=== PATIENT | male | born 1965 | race African-American/Black ===

== ENCOUNTER 2018-08-29 14:55 | Inpatient (IN) | payer OTHER ==
[2018-08-29 17:32] VITALS: BMI 22.5
--- NOTE | 2018-08-29 19:35 | HP ---
CIWA Score Nausea/Vomitin-Mild Nausea/No Vomiting Muscle Tremors: 2 Anxiety: 3 Agitation: 0-Normal Activity Paroxysmal Sweats: 2 Orientation: 1-Uncertain about Date Tacttile Disturbances: 2-Mild Itch/Numbness/Burn Auditory Disturbances: 0-None Visual Disturbances: 0-None Headache: 0-None Present CIWA-Ar Total Score: 11 - Admission Criteria OASAS Guidelines: Admission for Medically Managed Detox: Requires at least one of the followin. CIWA greater than 12 2. Seizures within the past 24 hours 3. Delirium tremens within the past 24 hours 4. Hallucinations within the past 24 hours 5. Acute intervention needed for co occurring medical disorder 6. Acute intervention needed for co occurring psychiatric disorder 7. Severe withdrawal that cannot be handled at a lower level of care (continued vomiting, continued diarrhea, abnormal vital signs) requiring intravenous medication and/or fluids 8. Patient presents the following: Acute intervention needed for co-occurring med or psych disorder Admission Criteria Met: Admission criteria met Admission [facility] - HPI Chief Complaint: " alcohol detox" Allergies/Adverse Reactions: Allergies Allergy/AdvReac Type Severity Reaction Status Date / Time guevara Allergy Verified 08/29/18 19:03 shellfish derived Allergy Verified 08/29/18 19:03 History of Present Illness: 52 yo male with hx of nicotine, marijuana, and alcohol dependence is here seeking detox d/t withdrawal symptoms. Last detox two months ago at [facility]. Peripheral neuropathy, hx gastric bypass, asthma, HTN, AIDS, depression, bipolar and anxiety. Denies suicidal / homicidal ideation or hx of suicide attempt. Denies hx of seizures or blackouts. Longest period of sobriety of sobriety three years Exam Limitations: No Limitations - Ebola screening Have you traveled outside of the country in the last 21 days: No Have you had contact with anyone from an Ebola affected area: No Have you been sick,other than usual withdrawal symptoms: No - Review of Systems Constitutional: Chills, Changes in sleep EENT: reports: Dental Problems (poor dentition) Respiratory: reports: No Symptoms reported Cardiac: reports: No Symptoms Reported GI: reports: Diarrhea, Poor Fluid Intake, Abdominal cramping : reports: No Symptoms Reported Musculoskeletal: reports: Joint Pain Integumentary: reports: Dryness, Pruritus Neuro: reports: See HPI Endocrine: reports: Increased Thirst Hematology: reports: See HPI Psychiatric: reports: Orientated x3, Depressed Other Systems: Reviewed and Negative Patient History - Patient Medical History Hx Anemia: No Hx Asthma: Yes Hx Chronic Obstructive Pulmonary Disease (COPD): No Hx Cancer: No Hx Cardiac Disorders: No Hx Congestive Heart Failure: No Hx Hypertension: Yes Hx Hypercholesterolemia: No Hx Pacemaker: No HX Cerebrovascular Accident: No Hx Seizures: No Hx Dementia: No Hx Diabetes: No Hx Gastrointestinal Disorders: No Hx Liver Disease: Yes (hep C treated ) Hx Genitourinary Disorders: No Hx Sexually Transmitted Disorders: No Hx Renal Disease (ESRD): No Hx Thyroid Disease: No Hx Human Immunodeficiency Virus (HIV): Yes (reports currely AIDS status ) Hx Hepatitis C: Yes (treated ) Hx Depression: Yes Hx Suicide Attempt: No Hx Bipolar Disorder: Yes Hx Schizophrenia: No - Patient Surgical History Past Surgical History: Yes Hx Lung Surgery: Yes (R PARTIAL REMOVAL 2016) Hx Abdominal Surgery: Yes (GASTRIC BYPASS 2012) Hx Orthopedic Surgery: Yes (R FOOT SX PLATE IN PLACE 2015) - PPD History Previous Implant?: No Documented Results: Negative w/o proof PPD to be Administered?: Yes - Smoking Cessation Smoking history: Current every day smoker Have you smoked in the past 12 months: Yes Aproximately how many cigarettes per day: 20 Hx Chewing Tobacco Use: No Initiated information on smoking cessation: Yes 'Breaking Loose' booklet given: 08/29/18 - Substance & Tx. History Hx Alcohol Use: Yes Hx Substance Use: Yes Substance Use Type: Alcohol Hx Substance Use Treatment: Yes (Last detox two months ago at [facility]. ) - Substances Abused Alcohol Route: Oral Frequency: Daily Amount used: 2 x 6 PACK BEER Age of first use: 9 Date of Last Use: 08/29/18 Marijuana/Hashish Route: Smoking Frequency: 1-3 times last 30 days Amount used: $50 Age of first use: 9 Date of Last Use: 08/29/18 Family Disease History - Family Disease History Family Disease History: Diabetes: Grandparent, Father, Mother, Other: Brother ( alcoholisn) Admission Physical Exam [facility] - Vital Signs Vital Signs: Vital Signs - 24 hr 08/29/18 17:28 Temperature 96.7 F L Pulse Rate 90 Respiratory 18 Rate Blood Pressure 151/97 - Physical General Appearance: Yes: Appropriately Dressed, Mild Distress, Thin, Sweating, Anxious HEENTM: Yes: EOMI, Hearing grossly Normal, Normal ENT Inspection, Normocephalic , Normal Voice, CARMELA, Pharynx Normal, Tm's normal, Other (poor dentition) Respiratory: Yes: Chest Non-Tender, Lungs Clear, Normal Breath Sounds, No Respiratory Distress, No Accessory Muscle Use Neck: Yes: Within Normal Limits Breast: Yes: Breast Exam Deferred Cardiology: Yes: Regular Rhythm, Regular Rate Abdominal: Yes: Normal Bowel Sounds, Non Tender, Flat, Soft Genitourinary: Yes: Within Normal Limits Back: Yes: Normal Inspection Musculoskeletal: Yes: full range of Motion, Gait Steady, Pelvis Stable Extremities: Yes: Normal Capillary Refill, Normal Inspection, Normal Range of Motion, Non-Tender Neurological: Yes: electrical prospecting observer II-XII NML intact, Fully Oriented, Alert, Motor Strength 5/5, Depressed Affect Integumentary: Yes: Normal Color, Warm, Diaphoresis Lymphatic: Yes: Within Normal Limits - Diagnostic (1) Alcohol dependence with withdrawal Current Visit: Yes Status: Acute Qualifiers: Complication of substance-induced condition: uncomplicated Qualified Code(s ): F10.230 - Alcohol dependence with withdrawal, uncomplicated (2) AIDS Current Visit: Yes Status: Chronic (3) Essential (primary) hypertension Current Visit: Yes Status: Chronic (4) Asthma Current Visit: Yes Status: Chronic Qualifiers: Asthma severity: moderate Asthma persistence: persistent Asthma complication type: uncomplicated Qualified Code(s): J45.40 - Moderate persistent asthma, uncomplicated (5) Peripheral neuropathy Current Visit: Yes Status: Chronic Qualifiers: Peripheral neuropathy type: polyneuropathy, unspecified Qualified Code(s): G62.9 - Polyneuropathy, unspecified (6) Hx of gastric bypass Current Visit: Yes Status: Chronic Cleared for Admission S - Detox or Rehab [facility] Level of Care: Medically Managed Detox Regimen/Protocol: Librium [facility] Breath Alcohol Content Breath Alcohol Content: 0 Urine Drug Screen - Results Drug Screen Negative: No Urine Drug Screen Results: THC-Marijuana, OXY-Oxycodone Inpatient Rehab Admission - Rehab Decision to Admit Inpatient rehab admission?: No
[2018-08-29] MEDS ORDERED: OLOPATADINE HCL OU PRN (19:51)
[2018-08-29] MEDS ORDERED: HYDROCORTISONE 2.5% TP PRN (19:51)
[2018-08-29] MEDS ORDERED: ACETAMINOPHEN 325 MG TABLET (FP) PO PRN ×2 (20:04)
[2018-08-29] MEDS ORDERED: chlordiazePOXIDE HCL 10 MG CAPSULE PO PRN (20:04)
[2018-08-29] MEDS ORDERED: ONDANSETRON *ODT* 4 MG TABLET SL PRN (20:04)
[2018-08-29] MEDS ORDERED: MENTHOL/PHENOL 1 EACH UD MM PRN (20:04)
[2018-08-29] MEDS ORDERED: BISMUTH SUBSALICYLATE 524 MG/30 ML UD PO PRN (20:04)
[2018-08-29] MEDS ORDERED: METHOCARBAMOL 500 MG TABLET PO PRN (20:04)
[2018-08-29] MEDS ORDERED: IBUPROFEN 400 MG TABLET (FP) PO PRN (20:04)
[2018-08-29] MEDS ORDERED: hydrOXYzine PAMOATE 25 MG CAPSULE (FP) PO PRN (20:04)
[2018-08-29] MEDS ORDERED: MAGNESIUM CITRATE 300 ML BOTTLE PO PRN (20:04)
[2018-08-29] MEDS ORDERED: MAGNESIUM HYDROX 2400MG/30ML ORAL SUSPENSION 30 ML CUP PO PRN (20:04)
[2018-08-29] MEDS ORDERED: MAG HYDROX/AL HYDROX/SIMETH 30 ML UNIT-DOSE CUP PO PRN (20:04)
[2018-08-29] MEDS: GABAPENTIN 100 MG CAPSULE (FP) PO SCH (21:06)
[2018-08-29] MEDS: chlordiazePOXIDE HCL 25 MG CAPSULE PO SCH (21:07)
[2018-08-29] MEDS: THIAMINE HCL 100 MG TABLET (FP) PO SCH (21:07)
[2018-08-29] MEDS: PATIENT'S OWN MEDICATION (NON-FORMULARY) (Trazodone Hcl [Trazodone Hcl] 100 MG) PO SCH (22:05)
[2018-08-29 23:47] LABS: URINE APPEARANCE CLOUDY; URINE COLOR AMBER; URINE GLUCOSE (UA) NEGATIVE (NEGATIVE); URINE KETONE NEGATIVE (NEGATIVE); URINE LEUK ESTERASE NEGATIVE (NEGATIVE); URINE NITRITE NEGATIVE (NEGATIVE); URINE PROTEIN 2+ (NEGATIVE); URINE UROBILINOGEN 4.0 E.U/dl mg/dL (0.2-1.0)
[2018-08-30 00:15] LABS: EPI CELLS RARE /HPF (FEW); URINE HYALINE CAST 34 /lpf; URINE MUCUS FEW
[2018-08-30] MEDS: GABAPENTIN 100 MG CAPSULE (FP) PO SCH ×3 (05:30→22:12)
[2018-08-30] MEDS: chlordiazePOXIDE HCL 25 MG CAPSULE PO SCH ×2 (05:30→12:14)
[2018-08-30] MEDS ORDERED: EMTRICITABINE/TENOFOV ALAFENAM (DESCOVY) TABLET PO SCH (10:00)
[2018-08-30 10:23] LABS: HEMATOCRIT 32.7 % (35.4-49); HEMOGLOBIN 10.8 GM/dL (11.7-16.9); MCH 28.8 pg (25.7-33.7); MCHC 33.1 g/dl (32.0-35.9); MEAN PLT VOLUME 7.1 fl (7.5-11.1); PLATELET COUNT 182 K/MM3 (134-434); RBC 3.76 M/mm3 (4.00-5.60); RDW 19.5 % (11.9-15.9); WHITE BLOOD COUNT 3.1 K/mm3 (4.0-10.0)
[2018-08-30] MEDS: PRENATAL VITAMINS W/ FOLIC ACID TABLET (FP) PO SCH (10:41)
[2018-08-30] MEDS: LOSARTAN POTASSIUM 50 MG TABLET (FP) PO SCH (10:44)
[2018-08-30] MEDS: NICOTINE 14 MG/24 HOURS TOPICAL PATCH TD SCH (10:45)
[2018-08-30] MEDS: NICOTINE POLACRILEX 2 MG GUM BUC PRN (10:47)
[2018-08-30 11:02] LABS: ALBUMIN 3.2 g/dl (3.4-5.0); ALK PHOS 84 U/L (45-117); ANION GAP 8 MMOL/L (8-16); BILIRUBIN,TOTAL 0.7 mg/dL (0.2-1); BLOOD UREA NITROGEN 13 mg/dL (7-18); CALCIUM 8.1 mg/dL (8.5-10.1); CHLORIDE 104 mmol/L (98-107); CO2 27 mmol/L (21-32); CREATININE 1.2 mg/dL (0.55-1.3); GLUCOSE,RANDOM 94 mg/dL (74-106); POTASSIUM 3.1 mmol/L (3.5-5.1); SGOT/AST 31 U/L (15-37); SGPT/ALT 20 U/L (13-61); SODIUM 139 mmol/L (136-145)
[2018-08-30] MEDS: HYDROCHLOROTHIAZIDE 25 MG TABLET (FP) PO SCH (12:08)
[2018-08-30] MEDS: EMTRICITABINE PO SCH (12:08)
[2018-08-30] MEDS: TENOFOVIR ALAFENAMIDE PO SCH (12:08)
[2018-08-30] MEDS: VALACYCLOVIR HCL 500 MG PO SCH (12:10)
[2018-08-30] MEDS: PATIENT'S OWN MEDICATION (NON-FORMULARY) (Darunavir/Cobicistat [Prezcobix 800 Mg-150 Mg Ta PO SCH (12:10)
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
[2018-08-30] MEDS ORDERED: POTASSIUM CHLORIDE TABS 20 MEQ TABLET.ER (FP) PO ONE (17:53)
--- NOTE | 2018-08-30 17:55 | PN ---
S CIWA - CIWA Score Nausea/Vomitin Muscle Tremors: 3 Anxiety: 3 Agitation: 0-Normal Activity Paroxysmal Sweats: 3 Orientation: 0-Oriented Tacttile Disturbances: 2-Mild Itch/Numbness/Burn Auditory Disturbances: 0-None Visual Disturbances: 0-None Headache: 0-None Present CIWA-Ar Total Score: 14 B[facility] Progress Note (SOAP) Subjective: Sweating, Tremors, Nausea, Stomach Cramping, Body Aches. Objective: PATIENT A & O X 3, OBSERVED AMBULATING ON UNIT. IN NO ACUTE DISTRESS. 08/30/18 17:50 Vital Signs Temperature 98.6 F 08/30/18 14:05 Pulse Rate 70 08/30/18 14:05 Respiratory Rate 20 08/30/18 14:05 Blood Pressure 119/73 08/30/18 14:05 O2 Sat by Pulse Oximetry (%) Laboratory Tests 08/29/18 08/30/18 08/30/18 23:17 07:00 07:00 WBC 3.1 L RBC 3.76 L Hgb 10.8 L Hct 32.7 L MCV 87.0 MCH 28.8 MCHC 33.1 RDW 19.5 H Plt Count 182 MPV 7.1 L Sodium 139 Potassium 3.1 L Chloride 104 Carbon Dioxide 27 Anion Gap 8 BUN 13 Creatinine 1.2 Creat Clearance w eGFR > 60 Random Glucose 94 Calcium 8.1 L Total Bilirubin 0.7 AST 31 ALT 20 Alkaline Phosphatase 84 Total Protein 7.0 Albumin 3.2 L Urine Color [place] Urine Appearance Cloudy Urine pH 5.0 Ur Specific [place] 1.027 Urine Protein 2+ H Urine Glucose (UA) Negative Urine Ketones Negative Urine Blood Negative Urine Nitrite Negative Urine Bilirubin 2.0 Urine Urobilinogen 4.0 e.u/dl Ur Leukocyte Esterase Negative Urine WBC (Auto) 9 Urine RBC (Auto) 30 Ur Epithelial Cells Rare Hyaline Casts 34 Urine Mucus Few RPR Titer 08/30/18 07:00 WBC RBC Hgb Hct MCV MCH MCHC RDW Plt Count MPV Sodium Potassium Chloride Carbon Dioxide Anion Gap BUN Creatinine Creat Clearance w eGFR Random Glucose Calcium Total Bilirubin AST ALT Alkaline Phosphatase Total Protein Albumin Urine Color Urine Appearance Urine pH Ur Specific [place] Urine Protein Urine Glucose (UA) Urine Ketones Urine Blood Urine Nitrite Urine Bilirubin Urine Urobilinogen Ur Leukocyte Esterase Urine WBC (Auto) Urine RBC (Auto) Ur Epithelial Cells Hyaline Casts Urine Mucus RPR Titer Nonreactive LABS NOTED. Assessment: 08/30/18 17:55 WITHDRAWAL SYMPTOMS. HYPOCALCEMIA. HYPOKALEMIA. LEUKOPENIA. ANEMIA. 08/30/18 17:56 Plan: CONTINUE DETOX. INCREASE DAILY PO FLUID INTAKE. K-DUR, 40 MEQ PO X 1 NOW, THEN 20 MEQ PO BID STARTING TOMORROW AM. OSCAL PO FOR HYPOCALCEMIA.
[2018-08-30] MEDS: CALCIUM 500MG/VIT-D 200 UNITS COMBO TABLET (FP) PO SCH (19:26)
[2018-08-30] MEDS: chlordiazePOXIDE 5 MG CAPSULE PO SCH (22:11)
[2018-08-30] MEDS: DIVALPROEX SODIUM 250 MG TABLET E.C. PO SCH (22:11)
[2018-08-30] MEDS: THIAMINE HCL 100 MG TABLET (FP) PO SCH (22:13)
[2018-08-30] MEDS: PATIENT'S OWN MEDICATION (NON-FORMULARY) (Trazodone Hcl [Trazodone Hcl] 100 MG) PO SCH (22:14)
[2018-08-30] MEDS: MELATONIN 5 MG TABLETS PO PRN (22:15)
[2018-08-31] MEDS: GABAPENTIN 100 MG CAPSULE (FP) PO SCH ×3 (05:45→22:11)
[2018-08-31] MEDS: chlordiazePOXIDE 5 MG CAPSULE PO SCH ×2 (05:45→13:25)
[2018-08-31] MEDS: PATIENT'S OWN MEDICATION (NON-FORMULARY) (Darunavir/Cobicistat [Prezcobix 800 Mg-150 Mg Ta PO SCH (10:06)
[2018-08-31] MEDS: VALACYCLOVIR HCL 500 MG PO SCH (10:06)
[2018-08-31] MEDS: HYDROCHLOROTHIAZIDE 25 MG TABLET (FP) PO SCH (10:07)
[2018-08-31] MEDS: TENOFOVIR ALAFENAMIDE PO SCH (10:07)
[2018-08-31] MEDS: LOSARTAN POTASSIUM 50 MG TABLET (FP) PO SCH (10:07)
[2018-08-31] MEDS: EMTRICITABINE PO SCH (10:07)
[2018-08-31] MEDS: PRENATAL VITAMINS W/ FOLIC ACID TABLET (FP) PO SCH (10:08)
[2018-08-31] MEDS: POTASSIUM CHLORIDE TABS 20 MEQ TABLET.ER (FP) PO SCH ×2 (10:08→17:31)
[2018-08-31] MEDS: CALCIUM 500MG/VIT-D 200 UNITS COMBO TABLET (FP) PO SCH (10:08)
[2018-08-31] MEDS: SERTRALINE HCL 50 MG TABLET (FP) PO SCH (10:09)
[2018-08-31] MEDS: NICOTINE 14 MG/24 HOURS TOPICAL PATCH TD SCH (10:10)
[2018-08-31] MEDS: NICOTINE POLACRILEX 2 MG GUM BUC PRN (10:11)
--- NOTE | 2018-08-31 16:59 | PN ---
S CIWA - CIWA Score Anxiety: 3 Agitation: 0-Normal Activity S Progress Note (SOAP) Subjective: Sweating, Tremors, Stomach Cramping, Body Aches. Objective: PATIENT A & O X 3, OBSERVED AMBULATING ON UNIT. IN NO ACUTE DISTRESS. 08/31/18 16:57 Vital Signs Temperature 96.4 F L 08/31/18 13:39 Pulse Rate 62 08/31/18 13:39 Respiratory Rate 18 08/31/18 13:39 Blood Pressure 108/72 08/31/18 13:39 O2 Sat by Pulse Oximetry (%) Laboratory Tests 08/29/18 08/30/18 08/30/18 23:17 07:00 07:00 WBC 3.1 L RBC 3.76 L Hgb 10.8 L Hct 32.7 L MCV 87.0 MCH 28.8 MCHC 33.1 RDW 19.5 H Plt Count 182 MPV 7.1 L Sodium 139 Potassium 3.1 L Chloride 104 Carbon Dioxide 27 Anion Gap 8 BUN 13 Creatinine 1.2 Creat Clearance w eGFR > 60 Random Glucose 94 Calcium 8.1 L Total Bilirubin 0.7 AST 31 ALT 20 Alkaline Phosphatase 84 Total Protein 7.0 Albumin 3.2 L Urine Color [place] Urine Appearance Cloudy Urine pH 5.0 Ur Specific [place] 1.027 Urine Protein 2+ H Urine Glucose (UA) Negative Urine Ketones Negative Urine Blood Negative Urine Nitrite Negative Urine Bilirubin 2.0 Urine Urobilinogen 4.0 e.u/dl Ur Leukocyte Esterase Negative Urine WBC (Auto) 9 Urine RBC (Auto) 30 Ur Epithelial Cells Rare Hyaline Casts 34 Urine Mucus Few RPR Titer 08/30/18 07:00 WBC RBC Hgb Hct MCV MCH MCHC RDW Plt Count MPV Sodium Potassium Chloride Carbon Dioxide Anion Gap BUN Creatinine Creat Clearance w eGFR Random Glucose Calcium Total Bilirubin AST ALT Alkaline Phosphatase Total Protein Albumin Urine Color Urine Appearance Urine pH Ur Specific [place] Urine Protein Urine Glucose (UA) Urine Ketones Urine Blood Urine Nitrite Urine Bilirubin Urine Urobilinogen Ur Leukocyte Esterase Urine WBC (Auto) Urine RBC (Auto) Ur Epithelial Cells Hyaline Casts Urine Mucus RPR Titer Nonreactive LABS NOTED. Assessment: 08/31/18 16:58 WITHDRAWAL SYMPTOMS. HYPOCALCEMIA. HYPOKALEMIA. LEUKOPENIA. ANEMIA. 08/30/18 17:56 Plan: CONTINUE DETOX. INCREASE DAILY PO FLUID INTAKE. CONTINUE K-DUR PO FOR HYPOKALEMIA. CONTINUE OSCAL PO FOR HYPOCALCEMIA.
[2018-08-31] MEDS: ALBUTEROL SO4 8 GM HFA INHALER IH PRN (18:31)
[2018-08-31] MEDS ORDERED: chlordiazePOXIDE HCL 10 MG CAPSULE PO PRN (21:00)
[2018-08-31] MEDS: DIVALPROEX SODIUM 250 MG TABLET E.C. PO SCH (22:11)
[2018-08-31] MEDS: MELATONIN 5 MG TABLETS PO PRN (22:12)
[2018-08-31] MEDS: chlordiazePOXIDE HCL 10 MG CAPSULE PO SCH (22:12)
[2018-08-31] MEDS: PATIENT'S OWN MEDICATION (NON-FORMULARY) (Trazodone Hcl [Trazodone Hcl] 100 MG) PO SCH (22:13)
[2018-08-31] MEDS: THIAMINE HCL 100 MG TABLET (FP) PO SCH (22:14)
[2018-09-01] MEDS: ALBUTEROL SO4 8 GM HFA INHALER IH PRN ×2 (05:43→19:06)
[2018-09-01] MEDS: chlordiazePOXIDE HCL 10 MG CAPSULE PO SCH ×3 (05:43→23:40)
[2018-09-01] MEDS: GABAPENTIN 100 MG CAPSULE (FP) PO SCH ×3 (05:43→23:40)
[2018-09-01] MEDS: POTASSIUM CHLORIDE TABS 20 MEQ TABLET.ER (FP) PO SCH ×2 (09:48→17:50)
[2018-09-01] MEDS: LOSARTAN POTASSIUM 50 MG TABLET (FP) PO SCH (09:48)
[2018-09-01] MEDS: SERTRALINE HCL 50 MG TABLET (FP) PO SCH (09:48)
[2018-09-01] MEDS: CALCIUM 500MG/VIT-D 200 UNITS COMBO TABLET (FP) PO SCH (09:48)
[2018-09-01] MEDS: HYDROCHLOROTHIAZIDE 25 MG TABLET (FP) PO SCH (09:48)
[2018-09-01] MEDS: PATIENT'S OWN MEDICATION (NON-FORMULARY) (Darunavir/Cobicistat [Prezcobix 800 Mg-150 Mg Ta PO SCH (09:50)
[2018-09-01] MEDS: PRENATAL VITAMINS W/ FOLIC ACID TABLET (FP) PO SCH (09:50)
[2018-09-01] MEDS: VALACYCLOVIR HCL 500 MG PO SCH (09:51)
[2018-09-01] MEDS: TENOFOVIR ALAFENAMIDE PO SCH (09:52)
[2018-09-01] MEDS: EMTRICITABINE PO SCH (09:52)
[2018-09-01] MEDS: NICOTINE 14 MG/24 HOURS TOPICAL PATCH TD SCH (09:56)
[2018-09-01] MEDS: NICOTINE POLACRILEX 2 MG GUM BUC PRN ×2 (09:57→14:30)
--- NOTE | 2018-09-01 15:06 | PN ---
[facility] Progress Note (SOAP) Subjective: Sweating, Tremors, Nausea, Anxious. Objective: PATIENT A & O X 3, OBSERVED AMBULATING ON UNIT. IN NO ACUTE DISTRESS. 09/01/18 15:04 Vital Signs Temperature 97.5 F L 09/01/18 13:55 Pulse Rate 82 09/01/18 13:55 Respiratory Rate 18 09/01/18 13:55 Blood Pressure 101/71 09/01/18 13:55 O2 Sat by Pulse Oximetry (%) Laboratory Tests 08/29/18 08/30/18 08/30/18 23:17 07:00 07:00 WBC 3.1 L RBC 3.76 L Hgb 10.8 L Hct 32.7 L MCV 87.0 MCH 28.8 MCHC 33.1 RDW 19.5 H Plt Count 182 MPV 7.1 L Sodium 139 Potassium 3.1 L Chloride 104 Carbon Dioxide 27 Anion Gap 8 BUN 13 Creatinine 1.2 Creat Clearance w eGFR > 60 Random Glucose 94 Calcium 8.1 L Total Bilirubin 0.7 AST 31 ALT 20 Alkaline Phosphatase 84 Total Protein 7.0 Albumin 3.2 L Urine Color [place] Urine Appearance Cloudy Urine pH 5.0 Ur Specific [place] 1.027 Urine Protein 2+ H Urine Glucose (UA) Negative Urine Ketones Negative Urine Blood Negative Urine Nitrite Negative Urine Bilirubin 2.0 Urine Urobilinogen 4.0 e.u/dl Ur Leukocyte Esterase Negative Urine WBC (Auto) 9 Urine RBC (Auto) 30 Ur Epithelial Cells Rare Hyaline Casts 34 Urine Mucus Few RPR Titer 08/30/18 07:00 WBC RBC Hgb Hct MCV MCH MCHC RDW Plt Count MPV Sodium Potassium Chloride Carbon Dioxide Anion Gap BUN Creatinine Creat Clearance w eGFR Random Glucose Calcium Total Bilirubin AST ALT Alkaline Phosphatase Total Protein Albumin Urine Color Urine Appearance Urine pH Ur Specific [place] Urine Protein Urine Glucose (UA) Urine Ketones Urine Blood Urine Nitrite Urine Bilirubin Urine Urobilinogen Ur Leukocyte Esterase Urine WBC (Auto) Urine RBC (Auto) Ur Epithelial Cells Hyaline Casts Urine Mucus RPR Titer Nonreactive LABS NOTED. Assessment: 09/01/18 15:05 WITHDRAWAL SYMPTOMS. ANEMIA. LEUKOPENIA. HYPOKALEMIA. Plan: CONTINUE DETOX. INCREASE DAILY PO FLUID INTAKE. PATIENT INITIALLY SCHEDULED FOR D/C FROM DETOX UNIT TODAY, 09/01/2018. HOWEVER, DUE TO PRESENCE AND SEVERITY OF LINGERING WITHDRAWAL SYMPTOMS, PATIENT PERMITTED TO REMAIN ON DETOX UNIT UNTIL TOMORROW, 09/02/2018
[2018-09-01] MEDS: THIAMINE HCL 100 MG TABLET (FP) PO SCH (23:40)
[2018-09-01] MEDS: DIVALPROEX SODIUM 250 MG TABLET E.C. PO SCH (23:40)
[2018-09-01] MEDS: PATIENT'S OWN MEDICATION (NON-FORMULARY) (Trazodone Hcl [Trazodone Hcl] 100 MG) PO SCH (23:42)
[2018-09-02] MEDS: ALBUTEROL SO4 8 GM HFA INHALER IH PRN (05:38)
[2018-09-02] MEDS: GABAPENTIN 100 MG CAPSULE (FP) PO SCH (05:38)
[2018-09-02] MEDS: PATIENT'S OWN MEDICATION (NON-FORMULARY) (Darunavir/Cobicistat [Prezcobix 800 Mg-150 Mg Ta PO SCH (07:51)
[2018-09-02] MEDS: HYDROCHLOROTHIAZIDE 25 MG TABLET (FP) PO SCH (10:02)
[2018-09-02] MEDS: POTASSIUM CHLORIDE TABS 20 MEQ TABLET.ER (FP) PO SCH (10:02)
[2018-09-02] MEDS: PRENATAL VITAMINS W/ FOLIC ACID TABLET (FP) PO SCH (10:02)
[2018-09-02] MEDS: LOSARTAN POTASSIUM 50 MG TABLET (FP) PO SCH (10:03)
[2018-09-02] MEDS: SERTRALINE HCL 50 MG TABLET (FP) PO SCH (10:03)
[2018-09-02] MEDS: CALCIUM 500MG/VIT-D 200 UNITS COMBO TABLET (FP) PO SCH (10:04)
[2018-09-02] MEDS: EMTRICITABINE PO SCH (10:06)
[2018-09-02] MEDS: TENOFOVIR ALAFENAMIDE PO SCH (10:06)
[2018-09-02] MEDS: NICOTINE 14 MG/24 HOURS TOPICAL PATCH TD SCH (10:06)
[2018-09-02] MEDS: VALACYCLOVIR HCL 500 MG PO SCH (10:07)
[2018-09-02 13:44] VITALS: BP 122/81; PULSE 89; TEMP 97
--- NOTE | 2018-09-02 13:53 | DS ---
[facility] Detox Discharge Summary Admission Date: 08/29/18 Discharge Date: 09/02/18 - History Present History: Alcohol Dependence Additional Comments: 52 years old male admitted on 08/29/18 for alcohol withdrawal stabilization completed detox regimen [facility] - Physical Exam Results Vital Signs: Vital Signs Temperature 97.0 F L 09/02/18 13:43 Pulse Rate 89 09/02/18 13:43 Respiratory Rate 18 09/02/18 13:43 Blood Pressure 122/81 09/02/18 13:43 O2 Sat by Pulse Oximetry (%) Pertinent Admission Physical Exam Findings: alcohol withdrawal sx Laboratory Last Values WBC 3.1 K/mm3 (4.0-10.0) L 08/30/18 07:00 RBC 3.76 M/mm3 (4.00-5.60) L 08/30/18 07:00 Hgb 10.8 GM/dL (11.7-16.9) L 08/30/18 07:00 Hct 32.7 % (35.4-49) L 08/30/18 07:00 MCV 87.0 fl (80-96) 08/30/18 07:00 MCH 28.8 pg (25.7-33.7) 08/30/18 07:00 MCHC 33.1 g/dl (32.0-35.9) 08/30/18 07:00 RDW 19.5 % (11.9-15.9) H 08/30/18 07:00 Plt Count 182 K/MM3 (134-434) 08/30/18 07:00 MPV 7.1 fl (7.5-11.1) L 08/30/18 07:00 Sodium 139 mmol/L (136-145) 08/30/18 07:00 Potassium 3.1 mmol/L (3.5-5.1) L 08/30/18 07:00 Chloride 104 mmol/L (98-107) 08/30/18 07:00 Carbon Dioxide 27 mmol/L (21-32) 08/30/18 07:00 Anion Gap 8 MMOL/L (8-16) 08/30/18 07:00 BUN 13 mg/dL (7-18) 08/30/18 07:00 Creatinine 1.2 mg/dL (0.55-1.3) 08/30/18 07:00 Creat Clearance w eGFR > 60 (>60) 08/30/18 07:00 Random Glucose 94 mg/dL (74-106) 08/30/18 07:00 Calcium 8.1 mg/dL (8.5-10.1) L 08/30/18 07:00 Total Bilirubin 0.7 mg/dL (0.2-1) 08/30/18 07:00 AST 31 U/L (15-37) 08/30/18 07:00 ALT 20 U/L (13-61) 08/30/18 07:00 Alkaline Phosphatase 84 U/L (45-117) 08/30/18 07:00 Total Protein 7.0 g/dl (6.4-8.2) 08/30/18 07:00 Albumin 3.2 g/dl (3.4-5.0) L 08/30/18 07:00 Urine Color [place] 08/29/18 23:17 Urine Appearance Cloudy 08/29/18 23:17 Urine pH 5.0 (5.0-8.0) 08/29/18 23:17 Ur Specific [place] 1.027 (1.010-1.035) 08/29/18 23:17 Urine Protein 2+ (NEGATIVE) H 08/29/18 23:17 Urine Glucose (UA) Negative (NEGATIVE) 08/29/18 23:17 Urine Ketones Negative (NEGATIVE) 08/29/18 23:17 Urine Blood Negative (NEGATIVE) 08/29/18 23:17 Urine Nitrite Negative (NEGATIVE) 08/29/18 23:17 Urine Bilirubin 2.0 (<2.0 mg/dL) 08/29/18 23:17 Urine Urobilinogen 4.0 e.u/dl mg/dL (0.2-1.0) 08/29/18 23:17 Ur Leukocyte Esterase Negative (NEGATIVE) 08/29/18 23:17 Urine WBC (Auto) 9 /hpf (3-5) 08/29/18 23:17 Urine RBC (Auto) 30 /hpf (0-3) 08/29/18 23:17 Ur Epithelial Cells Rare /HPF (FEW) 08/29/18 23:17 Hyaline Casts 34 /lpf 08/29/18 23:17 Urine Mucus Few 08/29/18 23:17 RPR Titer Nonreactive (NONREACTIVE) 08/30/18 07:00 lab noted low K+ K+ supplement repeat K+ - Treatment Hospital Course: Detox Protocol Followed, Detoxed Safely, Responded well, Discharged Condition Good, Rehab Referral Accepted Patient has Accepted a [facility] Referral to: [facility] - Medication Discharge Medications: Ambulatory Orders Albuterol Sulfate Inhaler - [Ventolin HFA Inhaler -] 1 - 2 inh PO QID 08/29/18 Budesonide/Formeterol Fumarate [SYMBICORT 160/4.5mcg -] 2 puff IH BID 08/29/18 Darunavir/Cobicistat [Prezcobix 800 mg-150 mg Tablet] 1 each PO DAILY 08/29/18 Emtricitabine/Tenofov Alafenam [Descovy 200-25 mg Tablet (Nf)] 1 each PO DAILY 08/29/18 Hydrochlorothiazide 25 mg PO QID 08/29/18 Hydrocortisone 2.5% Topical Cr [Anusol-Hc -] 1 applic TP PRN PRN 08/29/18 Metoprolol Succinate [Toprol XL -] 200 mg PO DAILY 08/29/18 Olopatadine HCl 5 ml OU BID PRN 08/29/18 Valacyclovir HCl [Valtrex] 500 mg PO DAILY 08/29/18 traZODone HCL [Trazodone HCl] 100 mg PO HS 08/29/18 Divalproex Sodium [Depakote] 250 mg PO HS 08/30/18 Sertraline HCl [Zoloft -] 50 mg PO DAILY 08/30/18 Hydrochlorothiazide [Hctz -] 25 mg PO DAILY #14 tablet 09/02/18 Losartan Potassium 50 mg PO DAILY #14 tablet 09/02/18 - Diagnosis (1) AIDS Current Visit: Yes Status: Chronic (2) Asthma Current Visit: Yes Status: Chronic Qualifiers: Asthma severity: mild Asthma persistence: intermittent Asthma complication type: uncomplicated Qualified Code(s): J45.20 - Mild intermittent asthma, uncomplicated (3) Essential (primary) hypertension Current Visit: Yes Status: Chronic (4) Alcohol dependence with withdrawal Current Visit: Yes Status: Acute Qualifiers: Complication of substance-induced condition: uncomplicated Qualified Code(s ): F10.230 - Alcohol dependence with withdrawal, uncomplicated - AMA Did Patient Leave Against Medical Advice: No
== END 2018-09-02 12:50 | disposition other institution (70) | DRG 775 ==
LOC: YASAS 14:55 → Y3N 20:38
PROVIDERS: ADMIT Surgery; ATTEND Surgery
PROC: HZ2ZZZZ Detoxification Services for Substance Abuse Treatment (ICD-10-PCS; principal; 2018-08-29)
DX: F10.230 Alcohol dependence with withdrawal, uncomplicated (principal); F12.20 Cannabis dependence, uncomplicated; F17.210 Nicotine dependence, cigarettes, uncomplicated; F31.9 Bipolar disorder, unspecified; F39 Unspecified mood [affective] disorder; F43.10 Post-traumatic stress disorder, unspecified; F41.8 Other specified anxiety disorders; B20 Human immunodeficiency virus [HIV] disease; I10 Essential (primary) hypertension; J45.20 Mild intermittent asthma, uncomplicated; G62.9 Polyneuropathy, unspecified; D64.9 Anemia, unspecified; E87.6 Hypokalemia; D72.819 Decreased white blood cell count, unspecified; E83.51 Hypocalcemia; Z86.19 Personal history of other infectious and parasitic diseases
CPT/HCPCS: 36415; 71046-TC-FY; 80053; 81003; 81015; 85027; 86593

== ENCOUNTER 2018-09-02 12:50 | Inpatient (IN) | payer OTHER ==
[2018-09-02 13:51] VITALS: BMI 24.3
[2018-09-02] MEDS ORDERED: IBUPROFEN 400 MG TABLET (FP) PO PRN (13:58)
[2018-09-02] MEDS ORDERED: MAGNESIUM HYDROX 2400MG/30ML ORAL SUSPENSION 30 ML CUP PO PRN (13:58)
[2018-09-02] MEDS ORDERED: MAGNESIUM CITRATE 300 ML BOTTLE PO PRN (13:58)
[2018-09-02] MEDS ORDERED: guaiFENesin 200 MG/10 ML 10 ML UNIT-DOSE CUPS PO PRN (13:58)
[2018-09-02] MEDS ORDERED: ACETAMINOPHEN 325 MG TABLET (FP) PO PRN (13:58)
[2018-09-02] MEDS ORDERED: P-EPHED 60MG/TRIPROLIDI 2.5MG TABLET PO PRN (13:58)
[2018-09-02] MEDS ORDERED: MENTHOL/PHENOL 1 EACH UD MM PRN (13:58)
[2018-09-02] MEDS ORDERED: MAG HYDROX/AL HYDROX/SIMETH 30 ML UNIT-DOSE CUP PO PRN (13:58)
--- NOTE | 2018-09-02 13:58 | HP ---
[facility] Rehab Assess/Revision - Admission History Admitted to Rehab from: [facility] Date of Admission to Rehab: 09/02/18 - Findings Detox History & Physical reviewed: Yes Concur with findings: Yes Comments/Additional Findings: transefrred from detox to rehab admission as per protocol Inpatient Rehab Admission - Rehab Decision to Admit Inpatient rehab admission?: Yes - Initial Determination Are CD services needed?: Yes Free of communicable disease: Yes Not in need of hospitalization: Yes - Rehab Admission Criteria Previous failed treatment: Yes Poor recovery environment: Yes Comorbidities: Yes Lacks judgement: No Patient is meeting Inpatient Rehab admission criteria:: Yes
[2018-09-02] MEDS ORDERED: HYDROCHLOROTHIAZIDE 25 MG TABLET (FP) PO SCH (14:00)
[2018-09-02] MEDS ORDERED: HYDROCORTISONE 2.5% TOPICAL CREAM 30 GM TUBE TP PRN (14:00)
[2018-09-02] MEDS: ALBUTEROL SO4 8 GM HFA INHALER IH PRN (17:36)
[2018-09-02] MEDS: MELATONIN 5 MG TABLETS PO PRN (21:41)
[2018-09-02] MEDS: THIAMINE HCL 100 MG TABLET (FP) PO SCH (21:41)
[2018-09-02] MEDS: BUDESONIDE/FORMETEROL FUMARATE 160/4.5 mcg INHALER IH SCH (21:42)
[2018-09-03] MEDS ORDERED: valACYclovir HCL 500 MG TABLET (FP) PO SCH (10:00)
[2018-09-03] MEDS ORDERED: DARUNAVIR 800 MG/COBICISTAT 150MG TABLET PO SCH (10:00)
[2018-09-03] MEDS ORDERED: EMTRICITABINE/TENOFOV ALAFENAM (DESCOVY) TABLET PO SCH (10:00)
[2018-09-03] MEDS: DARUNAVIR PO SCH (10:49)
[2018-09-03] MEDS: COBICISTAT 150 MG PO SCH (10:49)
[2018-09-03] MEDS: PATIENT,S OWN MED:EMTRICITABINE/TENOFOV ALAFENAM (DESCOVY) TABLET PO SCH (10:49)
[2018-09-03] MEDS: PRENATAL VITAMINS W/ FOLIC ACID TABLET (FP) PO SCH (10:50)
[2018-09-03] MEDS: BUDESONIDE/FORMETEROL FUMARATE 160/4.5 mcg INHALER IH SCH ×2 (10:50→22:11)
[2018-09-03] MEDS: LOSARTAN POTASSIUM 50 MG TABLET (FP) PO SCH (11:00)
[2018-09-03] MEDS: HYDROCHLOROTHIAZIDE 25 MG TABLET (FP) PO SCH (11:00)
--- NOTE | 2018-09-03 12:44 | PN ---
[facility] Progress Note Note: received rehab provider called that depakote lever is low psychiatric referral
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
[2018-09-03] MEDS: SERTRALINE HCL 50 MG TABLET (FP) PO SCH (15:15)
[2018-09-03] MEDS: THIAMINE HCL 100 MG TABLET (FP) PO SCH (21:54)
[2018-09-03] MEDS: traZODone HCL 100 MG TABLET (FP) PO SCH (21:54)
[2018-09-03] MEDS: MELATONIN 5 MG TABLETS PO PRN (21:54)
[2018-09-03] MEDS: DIVALPROEX SODIUM 500 MG TABLET E.C. PO SCH (21:54)
--- NOTE | 2018-09-04 10:46 | PN ---
[facility] Progress Note Note: PT C/O TO NURSE HE WAS FEELING DIZZY. ALERT O X 3. DENIES LOC. PT REPORTS HX OF OBESITY ,DM AND GASTRIC BYPASS BUT "CONVERTED TO HYPOGLYCEMIA". NOT ON ANTI- DIABETIC MEDICATION. PT REPORTS HE HAS PMD/PRIMARY CARE WITH DR MOTT AT [facility] ON [address], [place] AND SEES HIS PMD MONTHLY. REPORTS HE RARELY HAS HYPOGLYCEMIC EPISODES WHEN HE IS OUT THERE, BUT HAPPENS. PT DECLINED ROUTINE BGM AND STATE HE WILL ALERT STAFF WHEN HE FEELS HIS BLOOD SUGAR IS LOW. Vital Signs (72 hours) 09/02/18 09/03/18 09/03/18 21:00 00:57 03:30 Temperature Pulse Rate 84 Respiratory 19 20 18 Rate Blood Pressure 127/81 09/03/18 09/03/18 09/03/18 07:27 10:00 10:10 Temperature 97.8 F Pulse Rate 93 H 101 H 101 H Respiratory 18 18 Rate Blood Pressure 133/91 104/64 104/64 09/03/18 09/04/18 09/04/18 13:44 00:30 03:30 Temperature Pulse Rate 93 H Respiratory 18 18 18 Rate Blood Pressure 118/78 09/04/18 06:55 Temperature 98.5 F Pulse Rate 79 Respiratory 18 Rate Blood Pressure 128/93 BGM 50 MG/DL REPEAT BGM AFTER TWO CUPS OF OJ WITH 2 PKS SINGLE SERVE SUGAR WAS 53 MG/DL PLAN:MONITOR PT'S STATUS. INSTRUCTED PT TO ALERT STAFF IF HAVING ANY TYPE OF DIFFICULTY.
[2018-09-04] MEDS: DARUNAVIR PO SCH (10:55)
[2018-09-04] MEDS: VALACYCLOVIR HCL 500 MG PO SCH (10:55)
[2018-09-04] MEDS: COBICISTAT 150 MG PO SCH (10:55)
[2018-09-04] MEDS: PRENATAL VITAMINS W/ FOLIC ACID TABLET (FP) PO SCH (10:55)
[2018-09-04] MEDS: SERTRALINE HCL 50 MG TABLET (FP) PO SCH (10:55)
[2018-09-04] MEDS: BUDESONIDE/FORMETEROL FUMARATE 160/4.5 mcg INHALER IH SCH ×2 (10:56→21:56)
[2018-09-04] MEDS: PATIENT,S OWN MED:EMTRICITABINE/TENOFOV ALAFENAM (DESCOVY) TABLET PO SCH (10:56)
[2018-09-04] MEDS: HYDROCHLOROTHIAZIDE 25 MG TABLET (FP) PO SCH (10:58)
[2018-09-04] MEDS: LOSARTAN POTASSIUM 50 MG TABLET (FP) PO SCH (10:58)
[2018-09-04] MEDS: NICOTINE 14 MG/24 HOURS TOPICAL PATCH TD PRN (14:54)
[2018-09-04] MEDS: LOPERAMIDE HCL 2 MG CAPSULE PO PRN (17:08)
[2018-09-04] MEDS: THIAMINE HCL 100 MG TABLET (FP) PO SCH (21:55)
[2018-09-04] MEDS: DIVALPROEX SODIUM 500 MG TABLET E.C. PO SCH (21:55)
[2018-09-04] MEDS: traZODone HCL 100 MG TABLET (FP) PO SCH (21:55)
[2018-09-04] MEDS: MELATONIN 5 MG TABLETS PO PRN (21:56)
[2018-09-05] MEDS: COBICISTAT 150 MG PO SCH (08:01)
[2018-09-05] MEDS: PATIENT,S OWN MED:EMTRICITABINE/TENOFOV ALAFENAM (DESCOVY) TABLET PO SCH (08:01)
[2018-09-05] MEDS: DARUNAVIR PO SCH (08:01)
[2018-09-05] MEDS: VALACYCLOVIR HCL 500 MG PO SCH (10:42)
[2018-09-05] MEDS: SERTRALINE HCL 50 MG TABLET (FP) PO SCH (10:42)
[2018-09-05] MEDS: PRENATAL VITAMINS W/ FOLIC ACID TABLET (FP) PO SCH (10:42)
[2018-09-05] MEDS: NICOTINE 14 MG/24 HOURS TOPICAL PATCH TD PRN (10:44)
[2018-09-05] MEDS: NICOTINE POLACRILEX 2 MG GUM BC PRN (10:45)
[2018-09-05] MEDS: BUDESONIDE/FORMETEROL FUMARATE 160/4.5 mcg INHALER IH SCH ×2 (10:45→21:47)
[2018-09-05] MEDS ORDERED: BACLOFEN 10 MG TABLET (FP) PO ONE (11:23)
[2018-09-05] MEDS ORDERED: NAPROXEN 500 MG TABLET (FP) PO ONE (11:23)
--- NOTE | 2018-09-05 11:28 | PN ---
S Progress Note Note: PT C/O RIGHT FEET PAIN AND SWELLING. REPORTS HX SURGERY WITH ONE PLATE AND 8 SCREWS TO LEFT LATERAL FEET DUE TO FRACTURE FROM A FALL 3 YRS AGO. SX DONE AT [facility]. PT REPORTS RECENT PAIN STARTED 2 DAYS AGO WHEN HE WALKS. ALSO REPORTS HX OF PERIPHERAL NEUROPATHY. Vital Signs (72 hours) 09/02/18 09/03/18 09/03/18 21:00 00:57 03:30 Temperature Pulse Rate 84 Respiratory 19 20 18 Rate Blood Pressure 127/81 09/03/18 09/03/18 09/03/18 07:27 10:00 10:10 Temperature 97.8 F Pulse Rate 93 H 101 H 101 H Respiratory 18 18 Rate Blood Pressure 133/91 104/64 104/64 09/03/18 09/04/18 09/04/18 13:44 00:30 03:30 Temperature Pulse Rate 93 H Respiratory 18 18 18 Rate Blood Pressure 118/78 09/04/18 09/04/18 09/05/18 06:55 10:00 00:30 Temperature 98.5 F Pulse Rate 79 88 Respiratory 18 18 18 Rate Blood Pressure 128/93 115/76 09/05/18 09/05/18 09/05/18 03:30 06:41 10:00 Temperature 97.9 F Pulse Rate 75 90 Respiratory 18 18 Rate Blood Pressure 138/96 118/68 LEFT FOOT:SLIGHT SWELLING WITH TENDERNESS ON LATERAL ANKLE ON PALPATION. NO REDNESS OR OPEN WOUND. A:LEFT ANKLE/SWELLING S/P FRACTURE PLAN:NAPROSYN 500 MG PO BID BACLOFEN 10 MG PO BID ANALGESIC BALM APPLY DIRECTED ELEVATE RIGHT LEG WHILE IN BED.
[2018-09-05] MEDS: HYDROCHLOROTHIAZIDE 25 MG TABLET (FP) PO SCH (14:47)
[2018-09-05] MEDS: METHYL SALICYLATE/MENTHOL OINT 30 GM TUBE TP SCH ×2 (14:47→21:48)
[2018-09-05] MEDS: LOSARTAN POTASSIUM 50 MG TABLET (FP) PO SCH (14:47)
[2018-09-05] MEDS: NAPROXEN 500 MG TABLET (FP) PO SCH (21:46)
[2018-09-05] MEDS: DIVALPROEX SODIUM 500 MG TABLET E.C. PO SCH (21:46)
[2018-09-05] MEDS: BACLOFEN 10 MG TABLET (FP) PO SCH (21:47)
[2018-09-05] MEDS: traZODone HCL 100 MG TABLET (FP) PO SCH (21:47)
[2018-09-05] MEDS: MELATONIN 5 MG TABLETS PO PRN (21:47)
[2018-09-05] MEDS: THIAMINE HCL 100 MG TABLET (FP) PO SCH (21:48)
[2018-09-06] MEDS: PATIENT,S OWN MED:EMTRICITABINE/TENOFOV ALAFENAM (DESCOVY) TABLET PO SCH (08:18)
[2018-09-06] MEDS: DARUNAVIR PO SCH (08:18)
[2018-09-06] MEDS: COBICISTAT 150 MG PO SCH (08:18)
[2018-09-06] MEDS: METHYL SALICYLATE/MENTHOL OINT 30 GM TUBE TP SCH ×2 (10:34→21:50)
[2018-09-06] MEDS: HYDROCHLOROTHIAZIDE 25 MG TABLET (FP) PO SCH (10:34)
[2018-09-06] MEDS: LOSARTAN POTASSIUM 50 MG TABLET (FP) PO SCH (10:34)
[2018-09-06] MEDS: NAPROXEN 500 MG TABLET (FP) PO SCH ×2 (10:35→21:49)
[2018-09-06] MEDS: BUDESONIDE/FORMETEROL FUMARATE 160/4.5 mcg INHALER IH SCH ×2 (10:35→21:50)
[2018-09-06] MEDS: PRENATAL VITAMINS W/ FOLIC ACID TABLET (FP) PO SCH (10:35)
[2018-09-06] MEDS: BACLOFEN 10 MG TABLET (FP) PO SCH ×2 (10:35→21:49)
[2018-09-06] MEDS: SERTRALINE HCL 50 MG TABLET (FP) PO SCH (10:35)
[2018-09-06] MEDS: VALACYCLOVIR HCL 500 MG PO SCH (10:35)
[2018-09-06] MEDS: NICOTINE POLACRILEX 2 MG GUM BC PRN (10:36)
[2018-09-06] MEDS: NICOTINE 14 MG/24 HOURS TOPICAL PATCH TD PRN (10:36)
[2018-09-06] MEDS: ALBUTEROL SO4 8 GM HFA INHALER IH PRN (17:43)
[2018-09-06] MEDS: MELATONIN 5 MG TABLETS PO PRN (21:49)
[2018-09-06] MEDS: THIAMINE HCL 100 MG TABLET (FP) PO SCH (21:49)
[2018-09-06] MEDS: traZODone HCL 100 MG TABLET (FP) PO SCH (21:49)
[2018-09-06] MEDS: DIVALPROEX SODIUM 500 MG TABLET E.C. PO SCH (21:49)
[2018-09-07] MEDS: NICOTINE POLACRILEX 2 MG GUM BC PRN ×2 (04:30→10:31)
[2018-09-07] MEDS: DARUNAVIR PO SCH (07:55)
[2018-09-07] MEDS: COBICISTAT 150 MG PO SCH (07:55)
[2018-09-07] MEDS: PATIENT,S OWN MED:EMTRICITABINE/TENOFOV ALAFENAM (DESCOVY) TABLET PO SCH (07:55)
[2018-09-07] MEDS: LOSARTAN POTASSIUM 50 MG TABLET (FP) PO SCH (10:30)
[2018-09-07] MEDS: PRENATAL VITAMINS W/ FOLIC ACID TABLET (FP) PO SCH (10:30)
[2018-09-07] MEDS: HYDROCHLOROTHIAZIDE 25 MG TABLET (FP) PO SCH (10:30)
[2018-09-07] MEDS: NAPROXEN 500 MG TABLET (FP) PO SCH ×2 (10:30→21:46)
[2018-09-07] MEDS: VALACYCLOVIR HCL 500 MG PO SCH (10:30)
[2018-09-07] MEDS: BACLOFEN 10 MG TABLET (FP) PO SCH ×2 (10:30→21:46)
[2018-09-07] MEDS: SERTRALINE HCL 50 MG TABLET (FP) PO SCH (10:30)
[2018-09-07] MEDS: BUDESONIDE/FORMETEROL FUMARATE 160/4.5 mcg INHALER IH SCH ×2 (10:31→21:46)
[2018-09-07] MEDS: METHYL SALICYLATE/MENTHOL OINT 30 GM TUBE TP SCH ×2 (10:31→21:46)
[2018-09-07] MEDS: NICOTINE 14 MG/24 HOURS TOPICAL PATCH TD PRN (10:31)
[2018-09-07] MEDS: ALBUTEROL SO4 8 GM HFA INHALER IH PRN (18:18)
[2018-09-07] MEDS: DIVALPROEX SODIUM 500 MG TABLET E.C. PO SCH (21:46)
[2018-09-07] MEDS: MELATONIN 5 MG TABLETS PO PRN (21:46)
[2018-09-07] MEDS: traZODone HCL 100 MG TABLET (FP) PO SCH (21:46)
[2018-09-07] MEDS: THIAMINE HCL 100 MG TABLET (FP) PO SCH (21:46)
[2018-09-08] MEDS: PATIENT,S OWN MED:EMTRICITABINE/TENOFOV ALAFENAM (DESCOVY) TABLET PO SCH (07:01)
[2018-09-08] MEDS: DARUNAVIR PO SCH (07:01)
[2018-09-08] MEDS: COBICISTAT 150 MG PO SCH (07:01)
[2018-09-08] MEDS: BUDESONIDE/FORMETEROL FUMARATE 160/4.5 mcg INHALER IH SCH ×2 (10:42→21:53)
[2018-09-08] MEDS: SERTRALINE HCL 50 MG TABLET (FP) PO SCH (10:42)
[2018-09-08] MEDS: NAPROXEN 500 MG TABLET (FP) PO SCH ×2 (10:42→21:52)
[2018-09-08] MEDS: VALACYCLOVIR HCL 500 MG PO SCH (10:42)
[2018-09-08] MEDS: BACLOFEN 10 MG TABLET (FP) PO SCH ×2 (10:42→21:53)
[2018-09-08] MEDS: LOSARTAN POTASSIUM 50 MG TABLET (FP) PO SCH (10:42)
[2018-09-08] MEDS: PRENATAL VITAMINS W/ FOLIC ACID TABLET (FP) PO SCH (10:43)
[2018-09-08] MEDS: HYDROCHLOROTHIAZIDE 25 MG TABLET (FP) PO SCH ×2 (10:43→15:30)
[2018-09-08] MEDS: NICOTINE 14 MG/24 HOURS TOPICAL PATCH TD PRN (10:44)
[2018-09-08] MEDS: NICOTINE POLACRILEX 2 MG GUM BC PRN (10:44)
[2018-09-08] MEDS: METHYL SALICYLATE/MENTHOL OINT 30 GM TUBE TP SCH ×2 (10:44→21:53)
[2018-09-08] MEDS: ALBUTEROL SO4 8 GM HFA INHALER IH PRN ×2 (13:14→19:58)
[2018-09-08] MEDS: LOPERAMIDE HCL 2 MG CAPSULE PO PRN (15:21)
[2018-09-08] MEDS: THIAMINE HCL 100 MG TABLET (FP) PO SCH (21:52)
[2018-09-08] MEDS: traZODone HCL 100 MG TABLET (FP) PO SCH (21:52)
[2018-09-08] MEDS: DIVALPROEX SODIUM 500 MG TABLET E.C. PO SCH (21:52)
[2018-09-08] MEDS: MELATONIN 5 MG TABLETS PO PRN (21:54)
[2018-09-09] MEDS: DARUNAVIR PO SCH (07:34)
[2018-09-09] MEDS: COBICISTAT 150 MG PO SCH (07:34)
[2018-09-09] MEDS: PATIENT,S OWN MED:EMTRICITABINE/TENOFOV ALAFENAM (DESCOVY) TABLET PO SCH (07:35)
[2018-09-09] MEDS: METHYL SALICYLATE/MENTHOL OINT 30 GM TUBE TP SCH ×2 (10:33→21:54)
[2018-09-09] MEDS: SERTRALINE HCL 50 MG TABLET (FP) PO SCH (10:34)
[2018-09-09] MEDS: PRENATAL VITAMINS W/ FOLIC ACID TABLET (FP) PO SCH (10:34)
[2018-09-09] MEDS: VALACYCLOVIR HCL 500 MG PO SCH (10:34)
[2018-09-09] MEDS: NAPROXEN 500 MG TABLET (FP) PO SCH ×2 (10:34→21:53)
[2018-09-09] MEDS: BUDESONIDE/FORMETEROL FUMARATE 160/4.5 mcg INHALER IH SCH ×2 (10:34→21:53)
[2018-09-09] MEDS: LOSARTAN POTASSIUM 50 MG TABLET (FP) PO SCH (10:36)
[2018-09-09] MEDS: HYDROCHLOROTHIAZIDE 25 MG TABLET (FP) PO SCH (10:38)
[2018-09-09] MEDS: BACLOFEN 10 MG TABLET (FP) PO SCH ×2 (10:56→23:32)
[2018-09-09] MEDS: NICOTINE 14 MG/24 HOURS TOPICAL PATCH TD PRN (11:59)
[2018-09-09] MEDS: NICOTINE POLACRILEX 2 MG GUM BC PRN (12:49)
[2018-09-09] MEDS: HYDROCORTISONE 2.5% TP PRN (12:53)
[2018-09-09] MEDS: ALBUTEROL SO4 8 GM HFA INHALER IH PRN (20:39)
[2018-09-09] MEDS: traZODone HCL 100 MG TABLET (FP) PO SCH (21:53)
[2018-09-09] MEDS: THIAMINE HCL 100 MG TABLET (FP) PO SCH (21:53)
[2018-09-09] MEDS: MELATONIN 5 MG TABLETS PO PRN (21:53)
[2018-09-09] MEDS: DIVALPROEX SODIUM 500 MG TABLET E.C. PO SCH (21:55)
[2018-09-10] MEDS: ALBUTEROL SO4 8 GM HFA INHALER IH PRN ×2 (05:03→18:00)
[2018-09-10] MEDS: COBICISTAT 150 MG PO SCH (07:02)
[2018-09-10] MEDS: DARUNAVIR PO SCH (07:02)
[2018-09-10] MEDS: PATIENT,S OWN MED:EMTRICITABINE/TENOFOV ALAFENAM (DESCOVY) TABLET PO SCH (07:04)
[2018-09-10] MEDS: NAPROXEN 500 MG TABLET (FP) PO SCH ×2 (10:49→21:59)
[2018-09-10] MEDS: SERTRALINE HCL 50 MG TABLET (FP) PO SCH (10:49)
[2018-09-10] MEDS: VALACYCLOVIR HCL 500 MG PO SCH (10:49)
[2018-09-10] MEDS: LOSARTAN POTASSIUM 50 MG TABLET (FP) PO SCH (10:50)
[2018-09-10] MEDS: BACLOFEN 10 MG TABLET (FP) PO SCH ×2 (10:50→21:59)
[2018-09-10] MEDS: HYDROCHLOROTHIAZIDE 25 MG TABLET (FP) PO SCH (10:50)
[2018-09-10] MEDS: PRENATAL VITAMINS W/ FOLIC ACID TABLET (FP) PO SCH (10:50)
[2018-09-10] MEDS: METHYL SALICYLATE/MENTHOL OINT 30 GM TUBE TP SCH ×2 (10:51→21:59)
[2018-09-10] MEDS: BUDESONIDE/FORMETEROL FUMARATE 160/4.5 mcg INHALER IH SCH ×2 (10:51→21:59)
[2018-09-10] MEDS: NICOTINE POLACRILEX 2 MG GUM BC PRN (18:00)
[2018-09-10] MEDS: DIVALPROEX SODIUM 500 MG TABLET E.C. PO SCH (21:59)
[2018-09-10] MEDS: traZODone HCL 100 MG TABLET (FP) PO SCH (21:59)
[2018-09-10] MEDS: THIAMINE HCL 100 MG TABLET (FP) PO SCH (21:59)
[2018-09-11] MEDS: ALBUTEROL SO4 8 GM HFA INHALER IH PRN ×2 (05:30→19:20)
[2018-09-11] MEDS: DARUNAVIR PO SCH (07:00)
[2018-09-11] MEDS: COBICISTAT 150 MG PO SCH (07:00)
[2018-09-11] MEDS: PATIENT,S OWN MED:EMTRICITABINE/TENOFOV ALAFENAM (DESCOVY) TABLET PO SCH (07:01)
[2018-09-11] MEDS: SERTRALINE HCL 50 MG TABLET (FP) PO SCH (10:36)
[2018-09-11] MEDS: HYDROCHLOROTHIAZIDE 25 MG TABLET (FP) PO SCH (10:36)
[2018-09-11] MEDS: METHYL SALICYLATE/MENTHOL OINT 30 GM TUBE TP SCH ×2 (10:36→21:41)
[2018-09-11] MEDS: BACLOFEN 10 MG TABLET (FP) PO SCH ×2 (10:37→21:40)
[2018-09-11] MEDS: NICOTINE 14 MG/24 HOURS TOPICAL PATCH TD PRN (10:37)
[2018-09-11] MEDS: BUDESONIDE/FORMETEROL FUMARATE 160/4.5 mcg INHALER IH SCH ×2 (10:37→21:40)
[2018-09-11] MEDS: PRENATAL VITAMINS W/ FOLIC ACID TABLET (FP) PO SCH (10:37)
[2018-09-11] MEDS: VALACYCLOVIR HCL 500 MG PO SCH (10:37)
[2018-09-11] MEDS: NAPROXEN 500 MG TABLET (FP) PO SCH ×2 (10:37→21:40)
[2018-09-11] MEDS: LOSARTAN POTASSIUM 50 MG TABLET (FP) PO SCH (10:37)
[2018-09-11] MEDS: NICOTINE POLACRILEX 2 MG GUM BC PRN (10:38)
[2018-09-11] MEDS: HYDROCORTISONE 2.5% TP PRN (10:38)
[2018-09-11] MEDS: MELATONIN 5 MG TABLETS PO PRN (21:40)
[2018-09-11] MEDS: DIVALPROEX SODIUM 500 MG TABLET E.C. PO SCH (21:40)
[2018-09-11] MEDS: THIAMINE HCL 100 MG TABLET (FP) PO SCH (21:40)
[2018-09-11] MEDS: traZODone HCL 100 MG TABLET (FP) PO SCH (21:40)
[2018-09-12] MEDS: COBICISTAT 150 MG PO SCH (07:03)
[2018-09-12] MEDS: PATIENT,S OWN MED:EMTRICITABINE/TENOFOV ALAFENAM (DESCOVY) TABLET PO SCH (07:03)
[2018-09-12] MEDS: DARUNAVIR PO SCH (07:03)
--- NOTE | 2018-09-12 10:28 | PN ---
[facility] Progress Note Note: HYPOGLYCEMIC EPISODE#2: PT C/O TO NURSE ABOUT DISCOMFORT--REPORTED BRIEF DIZZINESS,DISORIENTATION,SWEATS , DISTORTED VIEW IN HIS ROOM. THIS PROVIDER RESPONDED TO CALL AND SAW PATIENT SITTING ON THE CHAIR WHILE BEING GIVEN OJ WITH SUGAR. 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 PT REPORTS HE ATE HIS NORMAL BREAKFAST THIS MORNING ABOUT 08:00. HE IS AMBULATORY WITH STEADY GAIT. DENIES C/P, SOB, OR LOC. DECLINED ER SUGGESTION STATING "ILL BE FINE". Active Medications Generic Name Dose Route Start Last Admin Trade Name Freq PRN Reason Stop Dose Admin Acetaminophen 650 mg 09/02/18 13:58 Tylenol - PO Q4H PRN FEVER Al Hydroxide/Mg Hydroxide 30 ml 09/02/18 13:58 Mylanta Oral Suspension - PO Q6H PRN DYSPEPSIA Albuterol Sulfate 2 puff 09/02/18 14:00 09/11/18 19:20 Ventolin Hfa Inhaler - IH 2 puff QID PRN Administration ASTHMA Baclofen 10 mg 09/05/18 22:00 09/12/18 11:09 Lioresal - PO 10 mg BID CAROLA Administration Budesonide/Formoterol Fumarate 2 puff 09/02/18 22:00 09/12/18 11:09 Symbicort 160/4.5mcg - IH 2 puff BID CAROLA Administration Divalproex Sodium 500 mg 09/03/18 22:00 09/11/18 21:40 Depakote - PO 500 mg HS CAROLA Administration Eucalyptus/Menthol/Phenol/Sorbitol 1 each 09/02/18 13:58 Cepastat Lozenge - MM Q4H PRN SORE THROAT Guaifenesin 10 ml 09/02/18 13:58 Robitussin - PO Q6H PRN COUGH Hydrochlorothiazide 25 mg 09/03/18 10:00 09/12/18 11:12 Hctz - PO Not Given DAILY CAROLA Hydrocortisone 1 applic 09/03/18 10:10 09/11/18 10:38 Anusol 2.5% Hc Cream - TP 1 applic PRN PRN Administration for itchy skin Loperamide HCl 4 mg 09/02/18 13:58 09/08/18 15:21 Imodium - PO 4 mg Q6H PRN Administration DIARRHEA Losartan Potassium 50 mg 09/03/18 10:00 09/12/18 11:09 Cozaar - PO 50 mg DAILY CAROLA Administration Magnesium Citrate 300 ml 09/02/18 13:58 Citroma - PO Q48H PRN CONSTIPATION Magnesium Hydroxide 30 ml 09/02/18 13:58 Milk Of Magnesia - PO DAILY PRN CONSTIPATION Melatonin 5 mg 09/02/18 22:00 09/11/18 21:40 Melatonin PO 5 mg HS PRN Administration INSOMNIA Methyl Salicylate 1 applic 09/05/18 11:30 09/12/18 11:10 [place] - TP Not Given BID CAROLA Metoprolol Succinate 200 mg 09/06/18 07:00 09/12/18 07:02 Toprol Xl - PO 200 mg DAILY@0700 CAROLA Administration Naproxen 500 mg 09/05/18 22:00 09/12/18 11:09 Naprosyn - PO 500 mg BID CAROLA Administration Nicotine 14 mg 09/02/18 13:58 09/12/18 11:38 Nicoderm Patch - TD 14 mg DAILY PRN Administration NICOTINE REPLACEMENT RX Nicotine Polacrilex 2 mg 09/02/18 13:58 09/12/18 11:39 Nicorette Gum - BC 2 mg Q2H PRN Administration NICOTINE REPLACEMENT RX Multivit/Folic Acid/Iron 1 tab 09/03/18 10:00 09/12/18 11:08 Vitamins (Sjr) - PO 1 tab DAILY CAROLA Administration Pseudoephedrine/Triprolidine 1 combo 09/02/18 13:58 Actifed - PO TID PRN NASAL CONGESTION Sertraline HCl 50 mg 09/03/18 14:00 09/12/18 11:09 Zoloft - PO 50 mg DAILY CAROLA Administration Thiamine HCl 100 mg 09/02/18 22:00 09/11/18 21:40 Vitamin B1 - PO 100 mg HS CAROLA Administration Trazodone HCl 100 mg 09/03/18 22:00 09/11/18 21:40 Desyrel - PO 100 mg HS CAROLA Administration Valacyclovir HCl 500 mg 09/04/18 10:00 09/12/18 11:08 Valtrex - PO 500 mg DAILY CAROLA Administration Vital Signs (72 hours) 09/10/18 09/10/18 09/10/18 00:30 03:30 07:53 Temperature 97.3 F L Pulse Rate 83 Respiratory 18 18 18 Rate Blood Pressure 131/79 09/10/18 09/10/18 09/11/18 10:00 21:00 00:30 Temperature Pulse Rate 73 74 Respiratory 18 Rate Blood Pressure 112/68 122/77 09/11/18 09/11/18 09/11/18 03:30 07:08 21:23 Temperature 97.9 F Pulse Rate 73 68 Respiratory 18 18 Rate Blood Pressure 128/91 127/85 09/12/18 09/12/18 09/12/18 00:30 03:30 06:59 Temperature 98.0 F Pulse Rate 65 Respiratory 20 18 18 Rate Blood Pressure 127/88 BGM DONE @ 9:49: 28 MG/DL REPEAT BGM @ 10:06: 115 MG/DL A:R/O REACTIVE HYPOGLYCEMIA NAD PLAN:PT WAS GIVEN 3 CUPS OF JUICE WITH 2 SACHETS OF SUGAR IN EACH CUP. MONITOR PT STATUS. DIETARY CONSULT FOR DIETARY MANAGEMENT OF PT WITH HX OF GASTRIC BYPASS AND FREQUENT SUDDEN HYPOGLYCEMIA POSTPRANDIAL.
[2018-09-12] MEDS: VALACYCLOVIR HCL 500 MG PO SCH (11:08)
[2018-09-12] MEDS: PRENATAL VITAMINS W/ FOLIC ACID TABLET (FP) PO SCH (11:08)
[2018-09-12] MEDS: NAPROXEN 500 MG TABLET (FP) PO SCH ×2 (11:09→21:40)
[2018-09-12] MEDS: SERTRALINE HCL 50 MG TABLET (FP) PO SCH (11:09)
[2018-09-12] MEDS: LOSARTAN POTASSIUM 50 MG TABLET (FP) PO SCH (11:09)
[2018-09-12] MEDS: BACLOFEN 10 MG TABLET (FP) PO SCH ×2 (11:09→21:41)
[2018-09-12] MEDS: BUDESONIDE/FORMETEROL FUMARATE 160/4.5 mcg INHALER IH SCH ×2 (11:09→21:40)
[2018-09-12] MEDS: METHYL SALICYLATE/MENTHOL OINT 30 GM TUBE TP SCH ×2 (11:10→21:41)
[2018-09-12] MEDS: HYDROCHLOROTHIAZIDE 25 MG TABLET (FP) PO SCH (11:12)
--- NOTE | 2018-09-12 11:12 | PN ---
S Progress Note Note: PT WAS SEEN BY THE OFFICE MACHINE TECHNICIAN AND RECOMMENDED THAT PATIENT NEEDS SMALL FREQUENT FEEDINGS--6 X DAILY WHICH INCLUDES BETWEEN MEAL SNACKS. PT RECOMMENDED FOR NCS( "SUGAR FREE") DIET WITH GLUCERNA BID FOR MID MORNING AND MID AFTERNOON. PT AND DIET PT IS AGREEABLE TO DIETARY PLAN.
[2018-09-12] MEDS: NICOTINE 14 MG/24 HOURS TOPICAL PATCH TD PRN (11:38)
[2018-09-12] MEDS: NICOTINE POLACRILEX 2 MG GUM BC PRN (11:39)
[2018-09-12] MEDS: MELATONIN 5 MG TABLETS PO PRN (21:40)
[2018-09-12] MEDS: traZODone HCL 100 MG TABLET (FP) PO SCH (21:40)
[2018-09-12] MEDS: THIAMINE HCL 100 MG TABLET (FP) PO SCH (21:40)
[2018-09-12] MEDS: DIVALPROEX SODIUM 500 MG TABLET E.C. PO SCH (21:40)
[2018-09-13] MEDS: COBICISTAT 150 MG PO SCH (07:22)
[2018-09-13] MEDS: PATIENT,S OWN MED:EMTRICITABINE/TENOFOV ALAFENAM (DESCOVY) TABLET PO SCH (07:22)
[2018-09-13] MEDS: DARUNAVIR PO SCH (07:22)
[2018-09-13] MEDS: HYDROCHLOROTHIAZIDE 25 MG TABLET (FP) PO SCH (10:08)
[2018-09-13] MEDS: PRENATAL VITAMINS W/ FOLIC ACID TABLET (FP) PO SCH (10:08)
[2018-09-13] MEDS: BACLOFEN 10 MG TABLET (FP) PO SCH ×2 (10:09→21:49)
[2018-09-13] MEDS: NAPROXEN 500 MG TABLET (FP) PO SCH ×2 (10:09→21:49)
[2018-09-13] MEDS: SERTRALINE HCL 50 MG TABLET (FP) PO SCH (10:09)
[2018-09-13] MEDS: METHYL SALICYLATE/MENTHOL OINT 30 GM TUBE TP SCH ×2 (10:09→21:50)
[2018-09-13] MEDS: VALACYCLOVIR HCL 500 MG PO SCH (10:09)
[2018-09-13] MEDS: NICOTINE 14 MG/24 HOURS TOPICAL PATCH TD PRN (10:09)
[2018-09-13] MEDS: LOSARTAN POTASSIUM 50 MG TABLET (FP) PO SCH (10:09)
[2018-09-13] MEDS: BUDESONIDE/FORMETEROL FUMARATE 160/4.5 mcg INHALER IH SCH ×2 (10:09→21:50)
[2018-09-13] MEDS: ALBUTEROL SO4 8 GM HFA INHALER IH PRN (19:43)
[2018-09-13] MEDS: traZODone HCL 100 MG TABLET (FP) PO SCH (21:49)
[2018-09-13] MEDS: DIVALPROEX SODIUM 500 MG TABLET E.C. PO SCH (21:49)
[2018-09-13] MEDS: THIAMINE HCL 100 MG TABLET (FP) PO SCH (21:49)
[2018-09-13] MEDS: MELATONIN 5 MG TABLETS PO PRN (21:50)
[2018-09-13 23:41] LABS: PH,URINE 5.5 (5.0-8.0); URINE APPEARANCE CLEAR; URINE BILIRUBIN NEGATIVE (NEGATIVE); URINE COLOR YELLOW; URINE GLUCOSE (UA) NEGATIVE (NEGATIVE); URINE KETONE NEGATIVE (NEGATIVE); URINE LEUK ESTERASE NEGATIVE (NEGATIVE); URINE NITRITE NEGATIVE (NEGATIVE); URINE PROTEIN NEGATIVE (NEGATIVE)
[2018-09-14] MEDS: ALBUTEROL SO4 8 GM HFA INHALER IH PRN (05:41)
[2018-09-14] MEDS: PATIENT,S OWN MED:EMTRICITABINE/TENOFOV ALAFENAM (DESCOVY) TABLET PO SCH (07:20)
[2018-09-14] MEDS: DARUNAVIR PO SCH (07:20)
[2018-09-14] MEDS: COBICISTAT 150 MG PO SCH (07:20)
[2018-09-14] MEDS: BUDESONIDE/FORMETEROL FUMARATE 160/4.5 mcg INHALER IH SCH ×2 (10:49→21:40)
[2018-09-14] MEDS: HYDROCHLOROTHIAZIDE 25 MG TABLET (FP) PO SCH (10:49)
[2018-09-14] MEDS: PRENATAL VITAMINS W/ FOLIC ACID TABLET (FP) PO SCH (10:49)
[2018-09-14] MEDS: NICOTINE 14 MG/24 HOURS TOPICAL PATCH TD PRN (10:49)
[2018-09-14] MEDS: BACLOFEN 10 MG TABLET (FP) PO SCH ×2 (10:50→21:40)
[2018-09-14] MEDS: VALACYCLOVIR HCL 500 MG PO SCH (10:50)
[2018-09-14] MEDS: SERTRALINE HCL 50 MG TABLET (FP) PO SCH (10:50)
[2018-09-14] MEDS: NAPROXEN 500 MG TABLET (FP) PO SCH ×2 (10:50→21:40)
[2018-09-14] MEDS: LOSARTAN POTASSIUM 50 MG TABLET (FP) PO SCH (10:50)
[2018-09-14] MEDS: METHYL SALICYLATE/MENTHOL OINT 30 GM TUBE TP SCH ×2 (10:50→21:40)
[2018-09-14 12:07] LABS: ALBUMIN 3.8 g/dl (3.4-5.0); ALK PHOS 60 U/L (45-117); ANION GAP 8 MMOL/L (8-16); BILIRUBIN,TOTAL 0.2 mg/dL (0.2-1); BLOOD UREA NITROGEN 15 mg/dL (7-18); CALCIUM 8.7 mg/dL (8.5-10.1); CHLORIDE 105 mmol/L (98-107); CO2 30 mmol/L (21-32); GLUCOSE,RANDOM 71 mg/dL (74-106); POTASSIUM 3.6 mmol/L (3.5-5.1); SGOT/AST 22 U/L (15-37); SGPT/ALT 21 U/L (13-61); SODIUM 142 mmol/L (136-145); TOT PROT 7.6 g/dl (6.4-8.2)
[2018-09-14 12:12] LABS: HEMATOCRIT 34.8 % (35.4-49); HEMOGLOBIN 10.9 GM/dL (11.7-16.9); MCH 27.5 pg (25.7-33.7); MCHC 31.4 g/dl (32.0-35.9); MEAN CELL VOLUME 87.6 fl (80-96); MEAN PLT VOLUME 7.3 fl (7.5-11.1); PLATELET COUNT 421 K/MM3 (134-434); RBC 3.97 M/mm3 (4.00-5.60); RDW 18.5 % (11.9-15.9)
[2018-09-14] MEDS: DIVALPROEX SODIUM 500 MG TABLET E.C. PO SCH (21:39)
[2018-09-14] MEDS: traZODone HCL 100 MG TABLET (FP) PO SCH (21:39)
[2018-09-14] MEDS: THIAMINE HCL 100 MG TABLET (FP) PO SCH (21:40)
[2018-09-14] MEDS: MELATONIN 5 MG TABLETS PO PRN (21:40)
[2018-09-15] MEDS: ALBUTEROL SO4 8 GM HFA INHALER IH PRN ×2 (05:05→17:39)
[2018-09-15] MEDS: DARUNAVIR PO SCH (07:05)
[2018-09-15] MEDS: COBICISTAT 150 MG PO SCH (07:05)
[2018-09-15] MEDS: PATIENT,S OWN MED:EMTRICITABINE/TENOFOV ALAFENAM (DESCOVY) TABLET PO SCH (07:06)
[2018-09-15] MEDS: NICOTINE POLACRILEX 2 MG GUM BC PRN (10:06)
[2018-09-15] MEDS: HYDROCHLOROTHIAZIDE 25 MG TABLET (FP) PO SCH (10:06)
[2018-09-15] MEDS: NAPROXEN 500 MG TABLET (FP) PO SCH ×2 (10:06→21:49)
[2018-09-15] MEDS: LOSARTAN POTASSIUM 50 MG TABLET (FP) PO SCH (10:06)
[2018-09-15] MEDS: BUDESONIDE/FORMETEROL FUMARATE 160/4.5 mcg INHALER IH SCH ×2 (10:06→21:49)
[2018-09-15] MEDS: VALACYCLOVIR HCL 500 MG PO SCH (10:06)
[2018-09-15] MEDS: PRENATAL VITAMINS W/ FOLIC ACID TABLET (FP) PO SCH (10:06)
[2018-09-15] MEDS: SERTRALINE HCL 50 MG TABLET (FP) PO SCH (10:06)
[2018-09-15] MEDS: METHYL SALICYLATE/MENTHOL OINT 30 GM TUBE TP SCH ×2 (10:06→21:49)
[2018-09-15] MEDS: BACLOFEN 10 MG TABLET (FP) PO SCH ×2 (10:06→21:49)
[2018-09-15] MEDS: NICOTINE 14 MG/24 HOURS TOPICAL PATCH TD PRN (10:06)
[2018-09-15] MEDS: DIVALPROEX SODIUM 500 MG TABLET E.C. PO SCH (21:49)
[2018-09-15] MEDS: THIAMINE HCL 100 MG TABLET (FP) PO SCH (21:49)
[2018-09-15] MEDS: traZODone HCL 100 MG TABLET (FP) PO SCH (21:49)
[2018-09-15] MEDS: MELATONIN 5 MG TABLETS PO PRN (21:49)
[2018-09-16] MEDS: PATIENT,S OWN MED:EMTRICITABINE/TENOFOV ALAFENAM (DESCOVY) TABLET PO SCH (07:02)
[2018-09-16] MEDS: DARUNAVIR PO SCH (07:02)
[2018-09-16] MEDS: COBICISTAT 150 MG PO SCH (07:02)
[2018-09-16] MEDS: ALBUTEROL SO4 8 GM HFA INHALER IH PRN (07:12)
[2018-09-16] MEDS: PRENATAL VITAMINS W/ FOLIC ACID TABLET (FP) PO SCH (10:13)
[2018-09-16] MEDS: METHYL SALICYLATE/MENTHOL OINT 30 GM TUBE TP SCH ×2 (10:13→22:05)
[2018-09-16] MEDS: LOSARTAN POTASSIUM 50 MG TABLET (FP) PO SCH (10:13)
[2018-09-16] MEDS: HYDROCHLOROTHIAZIDE 25 MG TABLET (FP) PO SCH (10:13)
[2018-09-16] MEDS: BUDESONIDE/FORMETEROL FUMARATE 160/4.5 mcg INHALER IH SCH ×2 (10:13→22:06)
[2018-09-16] MEDS: NAPROXEN 500 MG TABLET (FP) PO SCH ×2 (10:13→22:06)
[2018-09-16] MEDS: SERTRALINE HCL 50 MG TABLET (FP) PO SCH (10:13)
[2018-09-16] MEDS: VALACYCLOVIR HCL 500 MG PO SCH (10:13)
[2018-09-16] MEDS: BACLOFEN 10 MG TABLET (FP) PO SCH ×2 (10:13→22:06)
[2018-09-16] MEDS: NICOTINE 14 MG/24 HOURS TOPICAL PATCH TD PRN (10:14)
[2018-09-16] MEDS: NICOTINE POLACRILEX 2 MG GUM BC PRN (10:15)
[2018-09-16] MEDS: MELATONIN 5 MG TABLETS PO PRN (22:06)
[2018-09-16] MEDS: THIAMINE HCL 100 MG TABLET (FP) PO SCH (22:06)
[2018-09-16] MEDS: traZODone HCL 100 MG TABLET (FP) PO SCH (22:06)
[2018-09-16] MEDS: DIVALPROEX SODIUM 500 MG TABLET E.C. PO SCH (22:06)
[2018-09-17 07:16] VITALS: TEMP 97.4
[2018-09-17] MEDS: PATIENT,S OWN MED:EMTRICITABINE/TENOFOV ALAFENAM (DESCOVY) TABLET PO SCH (07:24)
[2018-09-17] MEDS: DARUNAVIR PO SCH (07:24)
[2018-09-17] MEDS: COBICISTAT 150 MG PO SCH (07:24)
--- NOTE | 2018-09-17 07:56 | PN ---
[facility] Progress Note Note: Patient is scheduled for discharged today. Scripts for 30 days supply of medications(Zoloft, Trazadone, Depakote) are electronically transmitted to [facility] [place] [address]
[2018-09-17] MEDS: ALBUTEROL SO4 8 GM HFA INHALER IH PRN (08:53)
[2018-09-17 10:00] VITALS: BP 123/73; PULSE 67
--- NOTE | 2018-09-17 11:06 | PN ---
[facility] Progress Note Note: PT COMPLETED REHAB AND DISCHARGED TODAY. PT MET WITH HIS COUNSELOR, DON RAINEY AND HAS BEEN REFERRED TO [facility] ON [place], [place] FOR CD AFTERCARE. PT REPORTS HE HAS A PRIMARY CARE PROVIDER, DR. PANTERA KU AT [facility]. PT REPORTS HE HAS OWN MEDS AND HAS APPOINTMENT TO FOLLOW UP WITH DR MOTT IN 2 WEEKS AFTER DISCHARGE FOR MEDICAL MANAGEMENT. Home Medications Medication Instructions Recorded Albuterol Sulfate Inhaler - 1 - 2 inh PO QID 08/29/18 [Ventolin HFA Inhaler -] Budesonide/Formeterol Fumarate 2 puff IH BID 08/29/18 [SYMBICORT 160/4.5mcg -] Darunavir/Cobicistat [Prezcobix 1 each PO DAILY 08/29/18 800 mg-150 mg Tablet] Emtricitabine/Tenofov Alafenam 1 each PO DAILY 08/29/18 [Descovy 200-25 mg Tablet (Nf)] Hydrochlorothiazide 25 mg PO QID 08/29/18 Hydrocortisone 2.5% Topical Cr 1 applic TP PRN PRN 08/29/18 [Anusol-Hc -] Metoprolol Succinate [Toprol XL -] 200 mg PO DAILY 08/29/18 Olopatadine HCl 1 drop OU BID 08/29/18 Valacyclovir HCl [Valtrex] 500 mg PO DAILY 08/29/18 Divalproex Sodium [Depakote] 250 mg PO HS 08/30/18 Hydrochlorothiazide [Hctz -] 25 mg PO DAILY #14 tablet 09/02/18 Losartan Potassium 50 mg PO DAILY #14 tablet 09/02/18 Divalproex [Depakote -] 500 mg PO HS #30 tablet.ec 09/17/18 Sertraline HCl [Zoloft -] 50 mg PO DAILY #30 tablet 09/17/18 traZODone HCL [Trazodone HCl] 100 mg PO HS #30 tablet 09/17/18 Vital Signs (72 hours) 09/15/18 09/15/18 09/15/18 00:30 03:30 06:59 Temperature 97.6 F Pulse Rate 65 Respiratory 18 18 18 Rate Blood Pressure 126/81 09/15/18 09/16/18 09/16/18 08:58 00:30 03:30 Temperature Pulse Rate 77 Respiratory 18 18 Rate Blood Pressure 110/71 09/16/18 09/16/18 09/17/18 06:46 08:51 00:30 Temperature 98.1 F Pulse Rate 72 73 Respiratory 18 18 Rate Blood Pressure 128/79 108/63 09/17/18 09/17/18 09/17/18 03:30 07:14 09:45 Temperature 97.4 F L Pulse Rate 76 67 Respiratory 18 18 18 Rate Blood Pressure 99/64 123/73 Laboratory Tests 09/03/18 09/03/18 09/04/18 07:40 07:40 10:20 WBC RBC Hgb Hct MCV MCH MCHC RDW Plt Count MPV Sodium Potassium 3.8 Chloride Carbon Dioxide Anion Gap BUN Creatinine Creat Clearance w eGFR POC Glucometer 50 Random Glucose Hemoglobin A1c % Calcium Total Bilirubin AST ALT Alkaline Phosphatase Total Protein Albumin Urine Color Urine Appearance Urine pH Ur Specific [place] Urine Protein Urine Glucose (UA) Urine Ketones Urine Blood Urine Nitrite Urine Bilirubin Urine Urobilinogen Ur Leukocyte Esterase Valproic Acid 12.5 L 09/04/18 09/04/18 09/07/18 10:38 12:02 15:28 WBC RBC Hgb Hct MCV MCH MCHC RDW Plt Count MPV Sodium Potassium Chloride Carbon Dioxide Anion Gap BUN Creatinine Creat Clearance w eGFR POC Glucometer 53 71 144 Random Glucose Hemoglobin A1c % Calcium Total Bilirubin AST ALT Alkaline Phosphatase Total Protein Albumin Urine Color Urine Appearance Urine pH Ur Specific [place] Urine Protein Urine Glucose (UA) Urine Ketones Urine Blood Urine Nitrite Urine Bilirubin Urine Urobilinogen Ur Leukocyte Esterase Valproic Acid 09/12/18 09/12/18 09/13/18 09:49 10:07 16:35 WBC RBC Hgb Hct MCV MCH MCHC RDW Plt Count MPV Sodium Potassium Chloride Carbon Dioxide Anion Gap BUN Creatinine Creat Clearance w eGFR POC Glucometer 28 115 98 Random Glucose Hemoglobin A1c % Calcium Total Bilirubin AST ALT Alkaline Phosphatase Total Protein Albumin Urine Color Urine Appearance Urine pH Ur Specific [place] Urine Protein Urine Glucose (UA) Urine Ketones Urine Blood Urine Nitrite Urine Bilirubin Urine Urobilinogen Ur Leukocyte Esterase Valproic Acid 09/13/18 09/14/18 09/14/18 16:55 09:43 10:00 WBC 7.0 RBC 3.97 L Hgb 10.9 L Hct 34.8 L MCV 87.6 MCH 27.5 MCHC 31.4 L RDW 18.5 H Plt Count 421 D MPV 7.3 L Sodium Potassium Chloride Carbon Dioxide Anion Gap BUN Creatinine Creat Clearance w eGFR POC Glucometer 53 Random Glucose Hemoglobin A1c % Calcium Total Bilirubin AST ALT Alkaline Phosphatase Total Protein Albumin Urine Color Yellow Urine Appearance Clear Urine pH 5.5 Ur Specific [place] 1.020 Urine Protein Negative Urine Glucose (UA) Negative Urine Ketones Negative Urine Blood Negative Urine Nitrite Negative Urine Bilirubin Negative Urine Urobilinogen 1.0 Ur Leukocyte Esterase Negative Valproic Acid 09/14/18 09/14/18 09/14/18 10:00 10:00 14:20 WBC RBC Hgb Hct MCV MCH MCHC RDW Plt Count MPV Sodium 142 Potassium 3.6 Chloride 105 Carbon Dioxide 30 Anion Gap 8 BUN 15 Creatinine 1.0 Creat Clearance w eGFR 78.47 POC Glucometer 88 Random Glucose 71 L Hemoglobin A1c % 5.2 Calcium 8.7 Total Bilirubin 0.2 AST 22 ALT 21 Alkaline Phosphatase 60 Total Protein 7.6 Albumin 3.8 Urine Color Urine Appearance Urine pH Ur Specific [place] Urine Protein Urine Glucose (UA) Urine Ketones Urine Blood Urine Nitrite Urine Bilirubin Urine Urobilinogen Ur Leukocyte Esterase Valproic Acid NAD MEDICALLY STABLE PLAN:FOLLOW UP WITH CD AFTERCARE ON 09/18/18 AT 9:00 A.M FOLLOW UP WITH PMD, DR MOTT IN 2 WEEKS FROM TODAY YOU SCHEDULED. INSTRUCTED PT TO TAKE COPIE OF LAB RESULT TO APPOINTMENT FOR HIS DOCTOR'S REVIEW AND FOLLOW UP.
== END 2018-09-17 09:52 | disposition home or self-care (01) | DRG 772 ==
LOC: YASAS 12:50 → Y5N 12:51
PROVIDERS: ADMIT Neuromusculoskeletal Medicine & OMM; ATTEND Neuromusculoskeletal Medicine & OMM
PROC: HZ42ZZZ Group Counseling for Substance Abuse Treatment, Cognitive-Behavioral (ICD-10-PCS; principal; 2018-09-02)
DX: F10.20 Alcohol dependence, uncomplicated (principal); F12.20 Cannabis dependence, uncomplicated; F17.210 Nicotine dependence, cigarettes, uncomplicated; B20 Human immunodeficiency virus [HIV] disease; E16.1 Other hypoglycemia; I10 Essential (primary) hypertension; J45.20 Mild intermittent asthma, uncomplicated; G62.9 Polyneuropathy, unspecified; B18.2 Chronic viral hepatitis C; Z98.84 Bariatric surgery status
CPT/HCPCS: 36415; 80053; 80164; 81003; 82962; 83036; 84132; 85027; J0475